=== PATIENT | female | born 1935 | race Caucasian/White ===

== ENCOUNTER 2016-09-18 09:53 | Inpatient (IN) | payer MEDICARE, OTHER ==
[~2016-09-18 09:53] MED LIST: ASPIRIN EC81 MG PO; ATORVASTATIN CA10 M1 PO; CALCIUM600 M1 PO; CENTRUM SILVER1 EAC3 PO; FISH OIL 1,2001 EAC7 PO; LISINOPRIL40 M1 PO; SYNTHROID100 MC1 PO
[2016-09-18 10:36] LABS: INR 0.9 INR (0.9-1.1); PROTHROMBIN TIME 10.7 SECONDS (9.0-13.6)
[2016-09-19 05:34] LABS: BASO % 0.1 % (0-2); HCT-HEMATOCRIT 28.7 % (34.0-49.0); HGB-HEMOGLOBIN 9.9 gm/dl (12.0-15.5); IMMATURE GRANULOCYTES ABSOLUTE 0.01 tho/cmm (0-0.03); IMMATURE GRANULOCYTES PERCENT 0.1 % (0-0.3); LYMPH % 5.4 % (20-45); LYMPH ABSOLUTE COUNT 0.5 tho/cmm (0.8-4.5); MCH (MEAN CORPUSCULAR HGB) 32.1 pg (28.0-32.0); MCHC MEAN CORPUSCULAR HGB CONC 34.5 % (32.0-36.0); MCV (MEAN CELL VOLUME) 93.2 fl (82.0-96.0); MEAN PLATELET VOLUME 10.4 cmc (9.4-12.4); MONO % 10.5 % (0-12); NEUTROPHILS % 83.9 % (40-80); PLATELET COUNT 145 tho/cmm (150-450); RED BLOOD COUNT 3.08 mil/cmm (4.00-5.20); WHITE BLOOD COUNT 9.5 tho/cmm (4.0-10.0)
[2016-09-20] MEDS ORDERED: MOBIC15 M2 PO (10:23)
[2016-09-20] MEDS ORDERED: TYLENOL325 M2 PO (10:23)
[2016-09-20] MEDS ORDERED: ROXICODONE5 M2 PO (10:24)
== END 2016-09-20 11:25 | DRG 470 ==
LOC: SHSA 09:53 → ORE 11:22 → PACU 13:38 → 5EA 15:00
PROVIDERS: ADMIT Orthopaedic Surgery Foot and Ankle Surgery
PROC: 0SRD0J9 Replacement of Left Knee Joint with Synthetic Substitute, Cemented, Open Approach (ICD-10-PCS; principal; 2016-09-18)
DX: M17.12 Unilateral primary osteoarthritis, left knee (principal); D50.0 Iron deficiency anemia secondary to blood loss (chronic); I10 Essential (primary) hypertension; E78.00 Pure hypercholesterolemia, unspecified; E03.9 Hypothyroidism, unspecified; N60.19 Diffuse cystic mastopathy of unspecified breast; Z86.010 Personal history of colon polyps
CPT/HCPCS: C1713; C1776; J0171; J0690; J1885; J2270; J2795